=== PATIENT | female | born 1970 | race Caucasian/White ===

== ENCOUNTER 2021-12-22 07:49 | Day surgery (SDC) | payer BC ==
[2021-12-22] VITALS (12 sets, daily range): BP systolic 99–164; BP diastolic 51–96
[~2021-12-22] VITALS: Ht 165.1 cm; Wt 115.9 kg
[2021-12-22] MEDS ORDERED: diphenhydrAMINE 25mg capsule PO PRN (08:15)
[2021-12-22] MEDS ORDERED: LORazepam 0.5 MG tablet PO PRN (08:15)
[2021-12-22] MEDS ORDERED: normal saline 1,000 ML IV SCH (08:15)
[2021-12-22] MEDS ORDERED: ESTR1TAB19 PO (08:34)
[2021-12-22] MEDS ORDERED: NITR0.4T48 SL (08:34)
[2021-12-22] MEDS ORDERED: NADO40TA3 PO (08:34)
[2021-12-22] MEDS ORDERED: LAMO100T PO (08:34)
[2021-12-22] MEDS ORDERED: LORA-269 PO (08:54)
[2021-12-22] MEDS ORDERED: VITAMIN D3 (09:00)
[2021-12-22] MEDS ORDERED: ASPI-1071 PO (09:00)
[2021-12-22] MEDS ORDERED: BUTA1TAB54 (09:01)
[2021-12-22 09:15] LABS: BASOPHILS # (AUTO) 0.1 X10'3 (0-0.2); BASOPHILS % (AUTO) 0.8 % (0-1); EOSINOPHILS # (AUTO) 0.2 X10'3 (0-0.9); EOSINOPHILS % (AUTO) 2.2 % (0-6); HEMATOCRIT 47.5 % (35.0-45.0); HEMOGLOBIN 15.9 g/dl (12.0-16.0); LYMPHOCYTES # (AUTO) 2.4 X10'3 (1.1-4.8); LYMPHOCYTES % (AUTO) 25.8 % (21-51); MEAN CORPUSCULAR HEMOGLOBIN 29.3 PG (27.0-31.0); MEAN CORPUSCULAR HGB CONC 33.4 g/dL (33.0-36.5); MEAN CORPUSCULAR VOLUME 87.7 FL (78-98); MONOCYTES # (AUTO) 0.6 X10'3 (0-0.9); MONOCYTES % (AUTO) 6.9 % (2-12); NEUTROPHILS % (AUTO) 64.3 % (42-75); PLATELET COUNT 261 X10'3 (140-440); RED BLOOD COUNT 5.41 X10'6 (4.20-5.60); RED CELL DISTRIBUTION WIDTH 14.3 % (11.5-14.5); WHITE BLOOD COUNT 9.3 X10'3 (4.5-11.0)
[2021-12-22 09:35] LABS: ALBUMIN 4.4 G/DL (3.4-5.0); ANION GAP 12 (8-16); BLOOD UREA NITROGEN 13 MG/DL (7-18); BUN/CREATININE RATIO 17.6 (6.6-38.0); CALCIUM 9.8 MG/DL (8.5-10.1); CHLORIDE 100 MMOL/L (99-107); CREATININE 0.74 MG/DL (0.40-0.90); GLUCOSE 104 MG/DL (70-104); MAGNESIUM 2.1 MG/DL (1.5-2.4); POTASSIUM 4.2 MMOL/L (3.5-5.1); SODIUM 139 MMOL/L (135-145); TOTAL CARBON DIOXIDE 27.4 MMOL/L (24-32); eGFR 83 ML/MIN
[2021-12-22] MEDS ORDERED: fentaNYL/PF 50MCG/1 ML 2ML syringe ONE (11:36)
[2021-12-22] MEDS ORDERED: midazolam 1 mg/ML 2ml injection ONE ×3 (11:36→12:48)
[2021-12-22] MEDS ORDERED: iohexol 350 MG/ML 50ML vial IV ONE (11:36)
[2021-12-22] MEDS ORDERED: LIDOcaine 1% 30ml preserv. free vial ONE (11:36)
[2021-12-22] MEDS ORDERED: heparin 1,000unit/ml 10ml vial 10 ML ONE (11:36)
[2021-12-22] MEDS ORDERED: iohexol 350MG/ML 100ml bottle IV ONE (11:36)
[2021-12-22] MEDS ORDERED: nitroGLYCERIN-Tridil 50MG/D5W 250 ML IV ONE (11:47)
[2021-12-22] MEDS ORDERED: verapamil 2.5 mg/ml inj IV ONE (11:47)
--- NOTE | 2021-12-22 12:24 | NUR ---
Pt left unit to go to procedure
[2021-12-22] MEDS ORDERED: LIDOcaine 1% (10mg/ml) 2ml vial ONE (12:37)
[2021-12-22] MEDS ORDERED: LORazepam 1 MG tablet PO ONE (14:00)
--- NOTE | 2021-12-22 14:01 | NUR ---
Pt iv fluids infusing as ordered NS@200ml/hr.
--- NOTE | 2021-12-22 14:17 | NUR ---
Pt is emotional. Crying and states she is "concerned about the future". Pt was reassured about the status about her heart cath. Pt was educated on process of follow up appointment. She is attempting to contact her by cell phone. Pt is drinking and eating crackers and apple sauce. VS stable as charted.
== END 2021-12-22 17:01 | disposition home or self-care (01) ==
LOC: SSTAY O 07:49
PROVIDERS: ATTEND Internal Medicine Cardiovascular Disease
DX: I25.118 Atherosclerotic heart disease of native coronary artery with other forms of angina pectoris (principal); I10 Essential (primary) hypertension; E78.5 Hyperlipidemia, unspecified; Z88.2 Allergy status to sulfonamides; Z88.5 Allergy status to narcotic agent; Z88.8 Allergy status to other drugs, medicaments and biological substances; Z90.710 Acquired absence of both cervix and uterus
CPT/HCPCS: 36415; 80048; 83735; 85025; 85610; 93005; 93458; 93571; 99152; 99153; C1769; C1894; J1644; J2250; J3010; J3490; J7030; Q0163; Q9967; A4620; A6258; A6402